=== PATIENT | male | born 1950 | race Caucasian/White ===

== ENCOUNTER 2019-02-12 08:27 | Outpatient (CLI) | payer MEDICARE, BC ==
--- NOTE | 2019-02-12 10:51 | MRI ---
MR OF THE PELVIS WITH AND WITHOUT CONTRAST INDICATION: History of BPH and elevated PSA COMPARISON: Prior MR of the pelvis with and without contrast dated September 25, 2016 TECHNIQUE: Multiplanar, multisequence MR images were obtained of the pelvis with and without IV contr ast. 20 cc of MultiHance was utilized for the examination. The examination was reviewed on a separate [employer] 3-D workstation for multiplanar metric evaluation. FINDINGS: Prostate size: The prostate measured 7.1 x 6.4 x 8.4cm. 157.8 cc. Peripheral zone: No area of restricted diffusion is seen within the peripheral zone. Central zone: There are numerous BPH nodule seen within the central zone of the prostate gland with p rominent herniated BPH nodules projecting into the base of the bladder. Neural vasculature: No evidence of neurovascular invasion Regional lymphadenopathy: None Dynamic contrast enhancement: Negative. Osseous structures: No suspicious osseous lesion is identified. 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 This is only we ll seen on the coronal T2-weighted images. This lesion measures 16 mm in its radial caudad dimension and is stable to the MR examination in 2017. Additional findings: None.. IMPRESSION: 1. PIRADS 1-Very Low (clinically significant cancer is highly unlikely to be present.) 2. Small area of T2 hypointensity within the posterior right sacral ala is stable measuring 16 mm in its greatest craniocaudad dimension. This may correspond to a well-circumscribed lucency within the posterior right sacral ala comparison CT examination in 2005 possibly reflecting a small atypical hem angioma. Follow-up CT of the pelvis may be helpful for further characterization.
== END 2019-02-12 08:28 | disposition home or self-care (01) ==
LOC: TBSIIMAG 08:27
PROVIDERS: ATTEND Neurological Surgery
DX: N40.0 Benign prostatic hyperplasia without lower urinary tract symptoms (principal); R93.89 Abnormal findings on diagnostic imaging of other specified body structures
CPT/HCPCS: 72197

== ENCOUNTER 2025-02-13 17:44 | Inpatient (IN) | payer MEDICARE ==
[2025-02-13 18:58] VITALS: BMI 33.7
[2025-02-13] MEDS ORDERED: Ondansetron PF 4 MG/2 ML Vial IVP PRN (21:04)
[2025-02-13] MEDS ORDERED: Acetaminophen 325 MG TAB PO PRN (21:04)
[2025-02-13] MEDS: Allopurinol 100 MG TAB PO SCH (22:12)
[2025-02-13] MEDS: Ezetimibe 10 MG TAB PO SCH (22:12)
[2025-02-13] MEDS: Rosuvastatin 20 MG TAB PO SCH (22:12)
[2025-02-14 05:55] LABS: #Basophils 0.06 10x3/uL (0.0-0.2); #Eosinophils 0.22 10x3/uL (0.0-0.7); #Monocytes 0.63 10x3/uL (0.11-0.59); #Neutrophils 3.75 10x3/uL (1.40-6.50); %Basophils 0.9 % (0.0-1.0); %Eosinophils 3.4 % (0.0-10.0); %Lymphocytes 28.5 % (21.0-51.0); %Monocytes 9.6 % (0.0-10.0); %Neutrophils 57.3 % (42.0-75.0); Hematocrit 40.6 % (42.0-52.0); Hemoglobin 13.2 g/dL (14.0-18.0); Mean Corpuscular Hemoglobin 28.8 pg (27.0-31.0); Mean Corpuscular Volume 88.6 fL (78.0-98.0); Platelet Count 161 10x3/uL (130-400); Red Blood Cell (RBC) Count 4.58 mill/uL (4.70-6.10); White Blood Cell (WBC) Count 6.55 10x3/uL (4.8-10.8)
[2025-02-14 06:38] LABS: ALT (SGPT) 20 U/L (Less than 45); AST (SGOT) 24 U/L (11-34); Albumin 3.6 g/dL (3.1-4.5); Alkaline Phosphatase 74 U/L (40-110); Anion Gap 16 mmol/L (10-20); BUN (Urea Nitrogen) 16 mg/dL (8.4-25.7); Bilirubin, Total 0.7 mg/dL (0.3-1.2); Calc. Creatinine Clearance 110 mL/min (70-130); Calcium 8.8 mg/dL (7.8-10.44); Carbon Dioxide 21 mmol/L (23-31); Chloride 110 mmol/L (98-107); Globulin 2.7 g/dL (2.4-3.5); Glucose 100 mg/dL (83-110); Potassium 3.9 mmol/L (3.5-5.1); Sodium 143 mmol/L (136-145)
[2025-02-14 07:08] LABS: Free T4 (Free Thyroxine) 1.28 ng/dL (0.70-1.48)
[2025-02-14] MEDS ORDERED: Apixaban 5 MG TAB PO SCH (09:00)
[2025-02-14] MEDS: Famotidine 20 MG TAB PO SCH (20:08)
[2025-02-14] MEDS: Allopurinol 100 MG TAB PO SCH (20:08)
[2025-02-14] MEDS: Rosuvastatin 20 MG TAB PO SCH (20:08)
[2025-02-15] MEDS: Diltiazem HCl/D5W 125 MG in Premix 1 BAG IVPB SCH (18:05)
[2025-02-16] MEDS ORDERED: PROPOFOL 200 MG/20 ML VIAL ONE (08:33)
[2025-02-16] MEDS ORDERED: Lidocaine 1% PF 5 ML VIAL ONE (08:33)
[2025-02-16 11:53] VITALS: BP 117/67; TEMP 98
[2025-02-16] MEDS ORDERED: Ezetimibe 10 MG TAB PO SCH (21:00)
== END 2025-02-16 12:41 | disposition home or self-care (01) | DRG 310 ==
LOC: OBS 17:46 → OBSVTOIN 21:04
PROVIDERS: ADMIT Internal Medicine; ATTEND Internal Medicine
PROC: 5A2204Z Restoration of Cardiac Rhythm, Single (ICD-10-PCS; principal; 2025-02-16)
DX: I48.0 Paroxysmal atrial fibrillation (principal); I10 Essential (primary) hypertension; M10.9 Gout, unspecified; M35.3 Polymyalgia rheumatica; E78.5 Hyperlipidemia, unspecified; Z79.899 Other long term (current) drug therapy; Z79.01 Long term (current) use of anticoagulants
CPT/HCPCS: 36415; 80053; 84439; 84443; 85025; 92960; 93005; 93010; 93306; 93312; 93970; J1650; J2704; J7512